=== PATIENT | male | born 1990 | race American Indian/Alaskan Native ===

== ENCOUNTER 2017-11-22 13:52 | Emergency (ER) | payer OTHER ==
[2017-11-22] MEDS ORDERED: NACL 0.9% 1000 ML 1,000 ML IV ONE (14:11)
[2017-11-22] MEDS ORDERED: ZOFRAN IV ONE (14:13)
[2017-11-22] MEDS ORDERED: SUBLIMAZE IV ONE ×2 (14:13→14:21)
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
[2017-11-22] MEDS: ZOFRAN IV ONE ×2 (14:26→14:29)
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
[2017-11-22 14:52] LABS: Basophils % (Auto) 0.7 % (0.0-1.8); Eosinophils % (Auto) 0.4 % (0.0-4.3); Hematocrit 40.8 % (35.5-45.6); Hemoglobin 13.7 gm/dl (11.8-15.2); Lymphocytes % (Auto) 19.9 % (13.4-35.0); Mean Corpuscular HGB Conc 34 % (32-34); Mean Corpuscular Hemoglobin 28 pg (28-32); Mean Corpuscular Volume 84 fl (84-94); Monocytes % (Auto) 8.4 % (0.0-7.3); Platelet Count 229 K/mm3 (140-440); Red Blood Count 4.86 M/mm3 (3.65-5.03); Red Cell Distribution Width 13.9 % (13.2-15.2)
[2017-11-22 14:53] LABS: Lymphocytes # (Auto) 1.3 K/mm3 (1.2-5.4); Monocytes # (Auto) 0.5 K/mm3 (0.0-0.8)
[2017-11-22 15:03] LABS: INR 0.76 (0.87-1.13)
[2017-11-22 15:04] LABS: Partial Thromboplastin Time 24.7 Sec. (24.2-36.6)
[2017-11-22 15:11] LABS: Alanine Aminotransferase 61 units/L (7-56); BUN/Creatinine Ratio 33; Blood Urea Nitrogen 23 mg/dL (9-20); Calcium 8.8 mg/dL (8.4-10.2); Hemolysis Index 34
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
[2017-11-22 16:08] VITALS: BP 108/67
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
== END 2017-11-22 17:10 | disposition home or self-care (01) ==
LOC: ED 13:52
DX: S22.31XA Fracture of one rib, right side, initial encounter for closed fracture (principal); S40.012A Contusion of left shoulder, initial encounter; R10.30 Lower abdominal pain, unspecified; F17.200 Nicotine dependence, unspecified, uncomplicated; R51 Headache; X58.XXXA Exposure to other specified factors, initial encounter; Y93.89 Activity, other specified; Y92.89 Other specified places as the place of occurrence of the external cause; Y99.8 Other external cause status
CPT/HCPCS: 36415; 70450; 71260; 72125; 73030; 74177; 80053; 84484; 85025; 85610; 85730; 86850; 86900; 86901; 96361; 96374; 96375; 99285; J2405; J3010; J7030; Q9967